=== PATIENT | female | born 1970 | race Caucasian/White ===

== ENCOUNTER 2021-04-01 19:22 | Emergency (ER) | payer BC ==
[2021-04-01 19:38] VITALS: TEMP 98.1
[2021-04-01] MEDS ORDERED: DIPH,PERTUS(ACELL)TETVAC-LF 0.5 ML VIAL IM ONE (21:16)
[2021-04-01] MEDS ORDERED: LIDOCAINE/EPINEPHR/TETRACAINE 5 ML BOTTLE TOPICAL ONE (21:16)
--- NOTE | 2021-04-01 21:20 | ED ---
General Adult HPI - General Chief complaint: Animal Bite Stated complaint: Cut on lip Time Seen by Provider: 04/01/21 21:16 Source: patient Mode of arrival: ambulatory Limitations: no limitations - History of Present Illness Initial comments: This is a 50-year-old female that presents to the emergency room with a dog bite to her top lip approximately one hour prior to arrival. She states it is her dog, pit bull, and shots are up-to-date. There is a approximately 0.5 cm laceration to the vermilion border the top lip. She states that her tetanus sh ot is not up-to-date. -: hour(s) (1) Location: face (Top lip through the vermilion border) Severity scale (1-10): 3 Consistency: constant Improves with: none Associated Symptoms: denies other symptoms Treatments Prior to Arrival: none - Related Data Previous Rx's Medication Instructions Recorded Amoxicillin/Potassium Clav 1 tab PO Q12HR #20 tab 04/01/21 [Augmentin 875-125 Tablet] Allergies Allergy/AdvReac Type Severity Reaction Status Date / Time morphine AdvReac Itching Verified 04/01/21 19:39 tramadol [From Ultram] AdvReac Itching Verified 04/01/21 19:39 Review of Systems ROS Statement: Those systems with pertinent positive or pertinent negative responses have been documented in the HPI. ROS Other: All systems not noted in ROS Statement are negative. Past Medical History Past Medical History: Thyroid Disorder Additional Past Medical History / Comment(s): hypothyroid, mthfr clotting disorder History of Any Multi-Drug Resistant Organisms: None Reported Past Surgical History: Section, Tubal Ligation Additional Past Surgical History / Comment(s): tubal ligation and reversal Past Psychological History: No Psychological Hx Reported Smoking Status: Never smoker Past Alcohol Use History: Occasional Past Drug Use History: None Reported General Exam Limitations: no limitations General appearance: alert, in no apparent distress Head exam: Present: atraumatic, normocephalic, normal inspection Eye exam: Present: normal appearance, PERRL, EOMI. Absent: scleral icterus, conjunctival injection, periorbital swelling ENT exam: Present: normal exam, normal oropharynx, mucous membranes moist Neck exam: Present: normal inspection, full ROM. Absent: tenderness, meningismus, lymphadenopathy Respiratory exam: Present: normal lung sounds bilaterally. Absent: respiratory distress, wheezes, rales, rhonchi, stridor Neurological exam: Present: alert, oriented X3 Psychiatric exam: Present: normal affect, normal mood Skin exam: Present: warm, dry, intact, normal color, other (Laceration to the top lip right side approximately 0.5 cm). Absent: rash Course Vital Signs 04/01/21 19:35 Temperature 98.1 F Procedures - Laceration Laceration #1 Consent Obtained: verbal consent Indication: laceration Site: lip Description: linear Sedation/Analgesia: none ((Physician) Pre-repair: irrigated extensively Type of Sutures: nylon Size of Sutures: 6-0 Number of Sutures: 2 Technique: simple, interrupted Patient Tolerated Procedure: well Medical Decision Making - Medical Decision Making Laceration was copiously irrigated with normal saline. LET solution was applied and the wound was approximated and closed with 2 sutures. Patient was placed on antibiotics and directed to follow up with primary care doctor, sutures to be removed in 5 days. Patient was discharged home without vital signs being taken. Case discussed with Dr. Gong Disposition Clinical Impression: Dog bite Disposition: HOME SELF-CARE Condition: Good Instructions (If sedation given, give patient instructions): Animal Bite (ED) Additional Instructions: Sutures to be removed in 5 days. Take antibiotic medication as prescribed. Follow-up with the primary care doctor in 1 week. Return if any new or worsening symptoms including signs of infection. Prescriptions: Amoxicillin/Potassium Clav [Augmentin 875-125 Tablet] 1 tab PO Q12HR #20 tab Is patient prescribed a controlled substance at d/c from ED?: No Referrals: None,Stated [REFERRING] - 1-2 days Time of Disposition: 23:25
== END 2021-04-01 23:50 | disposition home or self-care (01) ==
LOC: EC 19:22
DX: S01.551A Open bite of lip, initial encounter (principal); E07.9 Disorder of thyroid, unspecified; Z88.1 Allergy status to other antibiotic agents; Z88.5 Allergy status to narcotic agent; Z98.51 Tubal ligation status; W54.0XXA Bitten by dog, initial encounter
CPT/HCPCS: 40650; 90471; 90715; 99283